=== PATIENT | female | born 1975 | race Caucasian/White ===

== ENCOUNTER 2019-11-16 10:33 | Outpatient (CLI) | payer MEDICARE | END 2019-11-16 10:34 | disposition home or self-care (01) | LOC: LAB 10:33 | PROVIDERS: ATTEND Internal Medicine | DX: D68.51 Activated protein C resistance (principal); I27.82 Chronic pulmonary embolism; Z79.01 Long term (current) use of anticoagulants | CPT/HCPCS: 85610 ==